=== PATIENT | male | born 1940 | race Caucasian/White ===

== ENCOUNTER 2022-02-13 17:57 | Inpatient (IN) | payer MEDICARE, BC ==
[~2022-02-13] VITALS: Ht 165.1 cm; Wt 75.7 kg
--- NOTE | 2022-02-13 18:00 | NUR ---
Pt BIBA in stable condition, on 5150 hold for dts-gd. NAD at this time. Denies discomfort. To be seen by ERMD for MSE.
[2022-02-13 18:18] LABS: HEMATOCRIT 40.5 % (36.7-47.1); MEAN CORPUSCULAR HEMOGLOBIN 33.6 uug (23.8-33.4); MEAN CORPUSCULAR VOLUME 99.3 fL (73.0-96.2); PLATELET COUNT (AUTO) 226 K/uL (152-348)
[2022-02-13 18:50] LABS: CARBON DIOXIDE 29 mmol/L (21-32); CHLORIDE 106 mmol/L (98-107); CREATININE 1.3 mg/dL (0.6-1.3); GLUCOSE 86 mg/dL (74-106); POTASSIUM 4.2 mmol/L (3.5-5.1); UREA NITROGEN, BLOOD 20 mg/dL (7-18)
[2022-02-13 18:56] LABS: ALANINE AMINOTRANSFERASE 40 U/L (16-63); ALKALINE PHOSPHATASE 61 U/L (50-136); ASPARTATE AMINOTRANSFERASE 62 U/L (15-37); BILIRUBIN,DIRECT < 0.1 mg/dL (0.0-0.2); BILIRUBIN,TOTAL 0.3 mg/dL (0.2-1.0); TOTAL PROTEIN, SERUM 6.8 g/dL (6.4-8.2)
[2022-02-13 18:58] LABS: ACETAMINOPHEN < 2.0 ug/mL (10-30)
[2022-02-13 18:59] LABS: ETHANOL < 3 MG/DL (0-0)
--- NOTE | 2022-02-13 19:13 | NUR ---
Endorsed to Karen PERALES.
--- NOTE | 2022-02-13 19:15 | NUR ---
Patient is able to walk with steady gait in th bathroom, NAD noted
[2022-02-13 19:37] LABS: *BILIRUBIN,URIN NEGATIVE (NEGATIVE); *BLOOD, URINE 1+ (NEGATIVE); *CLARITY,URINE CLEAR (CLEAR); *COLOR,URINE YELLOW (YELLOW); *KETONES,URINE NEGATIVE (NEGATIVE); *UROBILINOGEN,URINE 0.2 E.U./dl (NORMAL); LEUKOCYTE ESTERASE ,URINE TRACE (NEGATIVE); NITRITE, URINE NEGATIVE (NEGATIVE); UGLUCOSE NEGATIVE (NEGATIVE)
--- NOTE | 2022-02-13 19:38 | NUR ---
Patient is calm and cooperative at this time.
--- NOTE | 2022-02-13 19:45 | NUR ---
called MHU for bed. Charge nurse will call me back
[2022-02-13 19:52] LABS: *AMPHETAMINE, URINE NEGATIVE (NEGATIVE); *CANNABINOID, URINE POSITIVE (NEGATIVE); *COCCAINE, URINE NEGATIVE (NEGATIVE); *OPIATE, URINE NEGATIVE (NEGATIVE); *PHENCYCLIDINE SCREEN,URINE NEGATIVE (NEGATIVE)
[2022-02-13 21:14] LABS: WBC,URINE 0-3 /HPF (0-3)
[2022-02-13 21:15] LABS: BACTERIA,URINE NONE SEEN /HPF (NONE SEEN); SQUAMOUS EPITHELIAL CELL,UR FEW /HPF (NONE SEEN)
--- NOTE | 2022-02-13 21:27 | NUR ---
called MHU. room is not ready
--- NOTE | 2022-02-13 22:15 | NUR ---
Patient got up and tried leaving. Security at bedside
--- NOTE | 2022-02-13 22:21 | NUR ---
Called warehouse driver Bakari for 1:1 sitter. no sitter available at this time
--- NOTE | 2022-02-13 22:50 | NUR ---
Patient is not cooperative, keep on walking in and out of the room, touching other patient's belongings. no 1:1 sitter at bedside. Will notify wash house supervisor.
--- NOTE | 2022-02-13 22:53 | NUR ---
Called housekeeper cleaning cooking Was told no sitter available.
--- NOTE | 2022-02-13 23:07 | NUR ---
report given to Amy PERALES - MHU
[2022-02-13] MEDS ORDERED: OLANZAPINE 10 MG VIAL IM ONE (23:59)
--- NOTE | 2022-02-14 | NUR ---
Patient agitated with threatening behavior. Security at bedside
--- NOTE | 2022-02-14 00:01 | NUR ---
Dr Cali verbally ordered Zyprexa 5 IM
--- NOTE | 2022-02-14 00:13 | NUR ---
Pt. admitted to MHU , under care of Dr. Sherwood Belongs List completed. Amy PERALES aware of patient's arrival
[2022-02-14 00:42] VITALS: BP 158/77
[2022-02-14] MEDS ORDERED: ACETAMINOPHEN 325 MG TABLET PO PRN (00:45)
[2022-02-14] MEDS ORDERED: MAGNESIUM HYDROXIDE 30 ML LIQUID UDC PO PRN (00:45)
[2022-02-14] MEDS ORDERED: BLOOD SUGAR DIAGNOSTIC 1 EACH STRIP VI ONE (00:45)
[2022-02-14] MEDS ORDERED: MAG HYDROX/AL HYDROX/SIMETH 30 ML LIQUID UDC PO PRN (00:45)
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
[2022-02-14] MEDS ORDERED: OLANZAPINE 10 MG VIAL IM ONE (01:45)
[2022-02-14 07:30] VITALS: BP 143/81
[2022-02-14] MEDS: DIVALPROEX SPRINKLE 125 MG CAP.SPRINK PO SCH ×3 (09:00→17:00)
--- NOTE | 2022-02-14 12:50 | NUR ---
FABIENNE Initial Discharge Note: Patient currently resides in his condo with his girlfriend at [address], [place] [address] ([phone]). Patient expressed he would like to discharge home. FABIENNE will follow-up with pt's girlfriend to coordinate discharge. FABIENNE will continue to work with patient, family, and MD to ensure a safe and proper discharge plan.
--- NOTE | 2022-02-14 13:25 | NUR ---
Firearms Report: Delivery Mgr completed and submitted a [employer] firearms report for 5150 grave disability certifications. A copy of report has been placed in patient chart.
--- NOTE | 2022-02-14 16:36 | NUR ---
Patient is argumentative, intrusive, restless, trying to elope, making compliments and trying to take female patient to his room. Patient gets irritable easily, asks to call 911 for him because he wants to get out. Patient is confused and forgetful, refusing all his medications. Active listening provided. Fall and safety precautions implemented.
[2022-02-14] MEDS: LORAZEPAM 0.5 MG TABLET PO PRN (20:41)
[2022-02-15] MEDS: LORAZEPAM 0.5 MG TABLET PO PRN (01:18)
[2022-02-15] MEDS: TEMAZEPAM 7.5 MG CAPSULE PO PRN (01:18)
--- NOTE | 2022-02-15 05:10 | NUR ---
Received patient at the start of the shift pacing the robb. The patient told this board writer that " I do not need any medications except Ativan ". The patient is demanding of things and acts entitled. Asking for one thing after another. The patient has insisted on having a private room. When informed that there were none, the patient was quick to anger. This patient is unable to engage in any meaningful conversation without talking over this board writer, arguing about insignificant and often delusion things. The patient was up and down all night. At one point, he interrupted this board writer, as she was when engaging with another patient and asked for sleeping medication. When it was prepared, he put it in his mouth and promptly spit it out stating " I changed my mind".The patient is manipulative , labile and verbally inappropriate with other patients. Minimal insight to the situation and poor impulse control. Safety Stratiges are in place and continuing to monitor this patient for medication compliance , intrusiveness and behavior escalation.l
[2022-02-15 07:30] VITALS: BP 135/81
[2022-02-15] MEDS: DIVALPROEX SPRINKLE 125 MG CAP.SPRINK PO SCH (08:27)
[2022-02-15] MEDS: OXCARBAZEPINE 150 MG TABLET PO SCH ×2 (12:46→17:00)
--- NOTE | 2022-02-15 15:21 | NUR ---
Patient is argumentative, refusing medications, confused, forgetful, intrusive, disorganized. A/O X [address] Patient is encourage to vent feelings. Fall and precautions implemented.
[2022-02-15 17:18] VITALS: BP 142/76
[2022-02-15 20:39] VITALS: BP 118/47
[2022-02-15] MEDS: QUETIAPINE FUMARATE 25 MG TABLET PO SCH (21:00)
[2022-02-16] MEDS: LORAZEPAM 0.5 MG TABLET PO PRN (04:16)
[2022-02-16 07:30] VITALS: BP 130/80
[2022-02-16] MEDS: OXCARBAZEPINE 150 MG TABLET PO SCH ×4 (08:48→17:00)
--- NOTE | 2022-02-16 10:56 | NUR ---
FABIENNE Family Contact: SW spoke with patient's sister, Abeba Murillo ([phone]) and discussed treatment and discharge plan. Pt's sister provided collateral information.
[2022-02-16] MEDS: OLANZAPINE 5 MG TABLET PO SCH (12:04)
--- NOTE | 2022-02-16 12:12 | NUR ---
APS Report: SW completed an APS report (Intake ID# [id number]) for self-neglect and it was successfully submitted on 02/16/2022 at 12:11 PM. A copy was placed in the chart.
--- NOTE | 2022-02-16 12:31 | NUR ---
APS Report: SW completed an APS report for self-neglect to [facility]. A copy was placed in the chart.
--- NOTE | 2022-02-16 18:31 | NUR ---
Patient is anxious, trying to elope, calling 911, restless, intrusive about other patients decisions e situations, delusional grandiose, threatening staff. A/O X 2 to person, place. Active listening provided.
[2022-02-16 20:00] VITALS: BP 154/92
[2022-02-16] MEDS: QUETIAPINE FUMARATE 25 MG TABLET PO SCH (21:06)
[2022-02-16] MEDS: TEMAZEPAM 7.5 MG CAPSULE PO PRN (21:07)
--- NOTE | 2022-02-17 06:47 | NUR ---
PRN sleeping aid medication given during shift. Patient had a quiet night slept for about 8 hours, he is calm and cooperate with care.
[2022-02-17 07:55] VITALS: BP 148/70
[2022-02-17] MEDS: OXCARBAZEPINE 150 MG TABLET PO SCH ×3 (09:00→16:49)
[2022-02-17] MEDS: OLANZAPINE 5 MG TABLET PO SCH (09:00)
[2022-02-17] MEDS: ENSURE ENLIVE (VAN) 240 ML LIQUID PO SCH (09:00)
--- NOTE | 2022-02-17 10:37 | NUR ---
Pt received ambulating unit hallway. Pt is uncooperative with staff and unit rules. Requires frequent redirection. Pt is manipulative, needy, attention seeking, impulsive, with poor boundaries. Denies SI and HI at this time. Frequently at nurses station making multiple requests and demands.
--- NOTE | 2022-02-17 10:48 | NUR ---
Pt noted cheeking medications. Stated he would be amenable to being compliant with medications. Pt then took medications, placed in mouth, and refused to open his mouth to ensure he swallowed it. Pt then noted spitting the medications in his hands and placing them in his pocket. Continues with manipulative and intrusive behaviors.
[2022-02-17 16:17] VITALS: BP 152/78
[2022-02-17 19:52] VITALS: BP 159/96
[2022-02-17] MEDS: QUETIAPINE FUMARATE 25 MG TABLET PO SCH (20:52)
[2022-02-17] MEDS: TEMAZEPAM 7.5 MG CAPSULE PO PRN (21:32)
[2022-02-18 07:50] VITALS: BP 136/81
[2022-02-18] MEDS: OXCARBAZEPINE 150 MG TABLET PO SCH ×4 (08:33→16:36)
[2022-02-18] MEDS: OLANZAPINE 5 MG TABLET PO SCH ×2 (08:33→08:38)
[2022-02-18] MEDS: ENSURE ENLIVE (VAN) 240 ML LIQUID PO SCH (08:34)
--- NOTE | 2022-02-18 14:33 | NUR ---
Received patient pacing in hallway restless,manipulative ,intrusive attention seeking.patient refused all scheduled medication, when re-directed patient he got agitated trowing the phone on the floor . will continue close monitoring.
[2022-02-18 16:10] VITALS: BP 124/70
--- NOTE | 2022-02-18 18:08 | NUR ---
patient constantly come to nurse station asked for patient's phone , patient has been calling 911 asked to be discharged from here.patient is not follow direction ,continue labile and agitated .medication offered he still refused.
[2022-02-18] MEDS: QUETIAPINE FUMARATE 25 MG TABLET PO SCH (20:51)
--- NOTE | 2022-02-18 21:45 | NUR ---
Received patient in the hallway. He was noted A/O x 3. he is noted hyperverbal, intrusive, easily irritable with Poor insight and judgment in to his admission to MHU, he stated, "I should be out of here. I don't belong here, i am not GD or DTO. this is a lie". patient was remained of the reason for his hold. he then stated, "I haven't even see a doctor here. She does not know me, she does not care". patient was reassured and redirected. In addition, he refused Seroquel 12.5mg PO QHS and V/S. patient was informed of the importance to comply with his medication regiment and plan of care to improve his condition yet refused. But he stated that he will take Ativan or/and Ambien later on. Patient was reassured for his safety. safety and fall precaution are in place. he was given PO fluids and snacks. will continue to monitor.
[2022-02-18] MEDS: LORAZEPAM 0.5 MG TABLET PO PRN (22:33)
--- NOTE | 2022-02-19 08:30 | NUR ---
Franci Orosco faxed to court and follow with court spoke with Ayleen.
--- NOTE | 2022-02-19 08:40 | NUR ---
Medication education given to patient.
[2022-02-19] MEDS: OLANZAPINE 5 MG TABLET PO SCH (09:00)
[2022-02-19] MEDS: OXCARBAZEPINE 150 MG TABLET PO SCH ×3 (09:00→17:00)
[2022-02-19] MEDS: ENSURE ENLIVE (VAN) 240 ML LIQUID PO SCH (09:18)
--- NOTE | 2022-02-19 11:29 | NUR ---
PC Hearing: Patient had 5250 probable cause hearing on 02/19/22 and it was upheld for grave disability. patient requested writ also faxed to court.
[2022-02-19 16:04] VITALS: BP 119/68
--- NOTE | 2022-02-19 16:46 | NUR ---
Franci hearing tomorrow at 10 am , notified.
[2022-02-19 20:00] VITALS: BP 120/70
[2022-02-19] MEDS: QUETIAPINE FUMARATE 25 MG TABLET PO SCH (21:06)
--- NOTE | 2022-02-19 21:45 | NUR ---
RECEIVED PATIENT IN THE DAYROOM. HE IS NOTED A/O X 3. HE IS noted calm pleasant and cooperative upon approached. patient is able to verbalized his feelings. he is noted Goal oriented. no aggressive or combative bx noted at this time. he denied SI/HI/VH/AH. he stated, "i am feeling better. i know i need to be here and hopefully i will be discharged but the end of the week and i will go back with my longtime girlfriend of 10 years". patient was able to comply with his [facility] medication regiment of seroquel 12.5mg. he also stated he may need a sleeping pill later on. Patient was reassured for his safety. safety and fall precautions are in place. his V/s are stable. he was given PO fluids and snacks. Will continue to monitor.
[2022-02-19] MEDS: TEMAZEPAM 7.5 MG CAPSULE PO PRN (22:17)
[2022-02-20 07:30] VITALS: BP 123/66
[2022-02-20] MEDS: OXCARBAZEPINE 150 MG TABLET PO SCH ×5 (08:40→17:00)
[2022-02-20] MEDS: ENSURE ENLIVE (VAN) 240 ML LIQUID PO SCH (08:40)
[2022-02-20] MEDS: OLANZAPINE 5 MG TABLET PO SCH ×3 (08:41→21:23)
[2022-02-20] MEDS ORDERED: OLANZAPINE 10 MG VIAL IM PRN (10:45)
--- NOTE | 2022-02-20 11:08 | NUR ---
PC Hearing: Patient had Medication Capacity Riese hearing today and it determined pt lacks capacity to give informed refusal and therefore may be medicated against his will.
--- NOTE | 2022-02-20 11:10 | NUR ---
FABIENNE Discharge Update: FABIENNE called and spoke with pt's sister, Abeba Velazquez ([phone]) to discuss discharge plan. FABIENNE discussed possible transfer to SNF in [place] near where pt's sister resides; however, pt's sister preferring transfer to SNF in [place] where pt currently resides. Pt's sister will follow-up with pt's friend, Claudia, to confirm whether she is agreeable to provide support if pt returns to [place]. FABIENNE called [place] [facility] and spoke with pt's APS Mihai LOVING ([phone]) who agrees with MD that pt is not safe to discharge home at this time; Mihai recommended LONG TERM transfer in [place]. recommending SNF until pt is ready to transfer to LONG TERM. Mihai provided list of SNFs in [place] - [place], [facility], [facility], [facility], [facility], [facility], [facility] for referrals.
--- NOTE | 2022-02-20 13:09 | NUR ---
SNF Referrals: SW faxed pt's SNF referral packet including History and Physical, Consultation Notes, Psychiatrist Progress Notes, Medications, and Labs to the following facilities for review possible SNF placement: [facility] [address] [place] [address] ([phone]) fax: [phone] attn: admissions; [facility] [address] [place] [address] ([phone]) fax: [phone] attn: admissions; [facility] [address] [place] [address] ([phone]) fax: [phone] attn: Roxana Goldberg; [facility] [address] [place] [address] ([phone]) fax: [phone] attn: Kristie; [facility] [address] [place] [address] ([phone]) fax: [phone] attn: Parvin; [facility] [address] [place] [address] ([phone]) fax: [phone] attn: Wisam; [facility] [address] [place] [address] ([phone]) fax: [phone] attn: admissions.
--- NOTE | 2022-02-20 14:45 | NUR ---
Writ requirements were sent to court by unit secy through email, copies of the documents were taken to the Psychiatrist for the hearing tomorrow at 08:30 am.
--- NOTE | 2022-02-20 14:50 | NUR ---
Patient is restless, always pacing in the hallway back and forth, selective with medications, argumentative, attention seeking, forgetful, accusatory. Pt. is A/O X 2 to person, place. Pt. is encourage to verbalize concerns. Fall and safety precautions implemented.
--- NOTE | 2022-02-20 15:00 | NUR ---
FABIENNE Discharge Update: FABIENNE called and spoke with pt's sister, Abeba Velazquez ([phone]) and confirmed that pt's friend, Claudia, has agreed to provide support for pt while he resides in SNF in [place] until he is ready to discharge home. Per pt's sister, pt's friend is willing to have pt stay with her after he is stable on medications; however, does not feel safe accepting him in his current state. FABIENNE called and spoke with pt's friend Claudia ([phone]) and confirmed the same. SW mediated conversation between pt and pt's friend regarding her willingness to accept pt after he is stable on medications. Pt denies he needs medications and states he will find another place to stay if his friend is unwilling to accept him at this time. Pt states he will rent a motel if he has no where else to go upon discharge. Pt reports he has a [employer] account with stocks and bonds amounting to $800,000; he states his debit card is among his belongings in the hospital for him to access his accounts. Pt reports he also has $3000 in connolly in a box in his condo. Pt was previously managing his own finances prior to his hospitalization. Pt previously reported receiving $2300 in social security custodial income each month. Pt confirmed he will move forward with the writ hearing as scheduled.
[2022-02-20 16:42] VITALS: BP 122/63
[2022-02-20 19:59] VITALS: BP 114/57
--- NOTE | 2022-02-20 20:30 | NUR ---
Received patient in the day room. He is A/O x 3. he is watching tv with another resident. Upon interview, patient is aware that he is reise. He stated, "I know, I know. but I take my medication. I just don't want Trileptal because it makes me sick. I am ready to be discharged. I can take care on myself. i can go with my girlfriend or i can go to my condo in [place] of my i can go with my friend". patient is noted Hyperverbal, Disorganized speech, he has poor insight and judgment into the reason for his admission to MHU. No aggressive or combative bx is noted or reported at this time. Patient denied SI/HI/VH/AH. Pt is somewhat redirectable. He is reassured for his safety. safety and fall precautions are in place. he was given PO fluids and snacks. patient V/A are stable. will continue to monitor.
[2022-02-20] MEDS ORDERED: ATORVASTATIN 10 MG TABLET PO SCH (21:00)
--- NOTE | 2022-02-20 22:00 | NUR ---
Patient is reise but he was able to comply with his medication regiment that included Zyprexa 5mg QHS. He is labile and hyperverbal but he is easily redirectable. will continue to monitor.
[2022-02-20] MEDS: TEMAZEPAM 7.5 MG CAPSULE PO PRN (22:01)
--- NOTE | 2022-02-21 07:03 | NUR ---
PATIENT SLEPT FOR APPROX 7 HRS THROUGH THE NIGHT. HE WAS ASKING THIS GROCERY WORKER WHERE THERE IS A TRAIN STATION. PATIENT IS WATCHING TV AT THIS TIME.
[2022-02-21 07:30] VITALS: BP 132/76
[2022-02-21] MEDS: OLANZAPINE 5 MG TABLET PO SCH ×2 (09:00→09:15)
[2022-02-21] MEDS: ASPIRIN 81 MG TAB.CHEW PO SCH ×2 (09:00→09:15)
[2022-02-21] MEDS: ENSURE ENLIVE (VAN) 240 ML LIQUID PO SCH (09:15)
--- NOTE | 2022-02-21 09:28 | NUR ---
SNF Referrals: SW faxed pt's SNF referral packet including History and Physical, Consultation Notes, Psychiatrist Progress Notes, Medications, and Labs to the following facility for review possible SNF placement: [facility] [address] [place] [address] ([phone]) attn: Drew.
--- NOTE | 2022-02-21 09:48 | NUR ---
Patient refused Zyprexa 5 mg PO, patient is riesed and Zyprexa 3 mg IM is given as prescribed by psychiatrist and unemployment benefits claims taker's orders.
--- NOTE | 2022-02-21 10:14 | NUR ---
SW Discharge Update: SW received call from [facility] ([phone]) informing they received referral and are unable to take pt.
--- NOTE | 2022-02-21 10:26 | NUR ---
Pt was angry, combative, and continues to refuse PO medications (Zyprexa 5mg PO) via RN assigned to him this shift. This nurse assisted with RN giving IM shot per MD orders; Zyprexa 3mg IM injection into (R) gluteal muscle. Pt tolerated procedure well.
--- NOTE | 2022-02-21 13:44 | NUR ---
SW Discharge Update: SW received call from Wisam with [facility] [address] [facility], [place] [address] ([phone]) informing they are unable to accept pt as they are unable to meet pt's needs.
--- NOTE | 2022-02-21 15:21 | NUR ---
Patient is suspicious, argumentative, anxious, short tempered, demanding, needy, accusatory, refusing medications and treatment, non cooperative with nursing care. Active listening provided. Fall and safety precautions implemented.
--- NOTE | 2022-02-21 16:37 | NUR ---
SW Final Discharge Note: Pt won Writ hearing today. Pt will be discharged to home [address], [place] [address] ([phone]) via personal taxi at 6pm. Pt is aware and agreeable with discharge plan. Pts sister has been contacted and is unwilling to provide transportation for pt upon discharge. Pt is alert and oriented x4, is unable to plan for self-care at this time; pt is unwilling to accept care at SNF. Pt denies any suicidal or homicidal ideation. Pt will follow-up at with Psychiatrist, Dr. Jamel Chow, [address] [place] [address], [place] [address] ([phone]) and Ultrasound Technician, ROSALVA Bautista at . Pt presents with calm mood and congruent affect. PHARMACY: [facility] [address] , [place] [address] ([phone]).
--- NOTE | 2022-02-21 16:37 | NUR ---
FABIENNE Discharge Note: FABIENNE called [facility] [address] [place] [address] [address], [place] [address] ([phone]) and spoke with Angelika and scheduled post-discharge follow-up appt on 02/27/22 at 8:30am with ROSALVA Bautista. FABIENNE called and left voice mail for Dr. Jamel Chow, psychiatrist, [address] [place] [address], [facility] [address], [place] [address] ([phone]) informing of pt's discharge and requesting call back to schedule follow-up appt.
--- NOTE | 2022-02-21 16:40 | NUR ---
SW Discharge Note: FABIENNE called and spoke with YOLANDA Holm APS SW ([phone]) and informed of pt's discharge to home today. Mihai states he will visit pt at home first thing in the morning on 02/22/22.
--- NOTE | 2022-02-21 16:46 | NUR ---
FABIENNE Family Contact: FABIENNE called and left voice mail for pt's friend, Claudia ([phone]) to inform of pt's discharge today and requested for her to also inform pt's girlfriend. FABIENNE called and left voice mail for pt's girlfriend briefly informing of pt's discharge to home today.
[2022-02-21 17:11] VITALS: BP 128/74
--- NOTE | 2022-02-21 17:59 | NUR ---
[facility] pharmacy at [address] [place] [address] ([phone]) was called for prescription for this patient. Psychiatrist ordered Zyprexa 5 mg q.12hr for 30 days, no refill.
--- NOTE | 2022-02-21 19:09 | NUR ---
Received orders to discharge this patient to self via taxi. Patient is going home in [place]. Patient was agreeable with discharge plans and signed all discharge documents. All belongings and valuables were returned to patient. Patient left the unit at 19:05. Emotional support provided. Fall and safety precautions implemented.
== END 2022-02-21 19:05 | disposition home or self-care (01) | DRG 885 ==
LOC: ER 18:04 → GPS 23:40
PROVIDERS: ADMIT Psychiatry & Neurology Psychosomatic Medicine; ATTEND Nurse Practitioner Acute Care
DX: F29 Unspecified psychosis not due to a substance or known physiological condition (principal); E78.5 Hyperlipidemia, unspecified; F25.0 Schizoaffective disorder, bipolar type; Z73.6 Limitation of activities due to disability; Z91.199 Patient's noncompliance with other medical treatment and regimen due to unspecified reason; R41.9 Unspecified symptoms and signs involving cognitive functions and awareness; Z20.822 Contact with and (suspected) exposure to COVID-19; R79.89 Other specified abnormal findings of blood chemistry
CPT/HCPCS: 36415; 85025; A4663; G0480; J2358